=== PATIENT | male | born 1980 | race Caucasian/White ===

== ENCOUNTER 2018-02-08 17:59 | Emergency (ER) | payer SELFPAY ==
[2018-02-08] MEDS ORDERED: methylPREDNISolone Sodium Succinate 125 MG/2 ML SDV IM ONE (19:06)
[2018-02-08] MEDS ORDERED: Albuterol/Ipratropium 3.0-0.5 MG/3 ML Neb Soln NEB ONE (19:06)
--- NOTE | 2018-02-08 19:09 | EDM.PDOC ---
ED HPI GENERAL MEDICAL PROBLEM - General Chief Complaint: Respiratory Problem Stated Complaint: difficulty breathing Time Seen by Provider: 02/08/18 19:01 Source of Information: Reports: Patient, RN Notes Reviewed History Limitations: Reports: No Limitations - History of Present Illness INITIAL COMMENTS - FREE TEXT/NARRATIVE: 37-year-old gentleman presents to the emergency department today complaint of shortness of breath, he states is been short of breath for about 2 days he noticed it after he did clean out an old house getting ready for tear down. House is located in the [facility] he was not wearing a mask he does have white sputum production and is audibly wheezing. No history of asthma takes no medications chest pain Pain Score (Numeric/FACES): 2 - Related Data Allergies Allergy/AdvReac Type Severity Reaction Status Date / Time No Known Allergies Allergy Verified 02/08/18 18:50 Home Meds: Home Meds NK [No Known Home Meds] 02/08/18 [History] Past Medical History Musculoskeletal History: Reports: Arthritis - Past Surgical History HEENT Surgical History: Reports: Oral Surgery Social & Family History - Tobacco Use Smoking Status *Q: Never Smoker - Caffeine Use Caffeine Use: Reports: Coffee, Tea - Recreational Drug Use Recreational Drug Use: No ED ROS GENERAL - Review of Systems Review Of Systems: See Below Constitutional: Denies: Fever, Chills HEENT: Reports: No Symptoms Respiratory: Reports: Shortness of Breath, Wheezing, Cough, Sputum Cardiovascular: Reports: No Symptoms GI/Abdominal: Reports: No Symptoms : Reports: No Symptoms Musculoskeletal: Reports: No Symptoms Skin: Reports: No Symptoms Neurological: Reports: No Symptoms ED EXAM, GENERAL - Physical Exam Exam: See Below Exam Limited By: No Limitations General Appearance: Alert, WD/WN, No Apparent Distress Eye Exam: Bilateral Eye: Normal Inspection Head: Atraumatic, Normocephalic Neck: Normal Inspection, Supple, Non-Tender, Full Range of Motion Respiratory/Chest: No Respiratory Distress, No Accessory Muscle Use, Decreased Breath Sounds, Wheezing Cardiovascular: Regular Rate, Rhythm, No Murmur Course - Vital Signs Last Recorded V/S: Last Vital Signs Temp 96.8 F 02/08/18 18:51 Pulse 86 02/08/18 18:51 Resp 20 02/08/18 18:51 BP 146/98 H 02/08/18 18:51 Pulse Ox 93 L 02/08/18 18:51 - Orders/Labs/Meds Orders: Active Orders 24 hr Category Date Time Status RT Aerosol Therapy [RC] ASDIRECTED Care 02/08/18 19:06 Active Chest 2V [CR] Urgent Exams 02/08/18 19:05 Taken Labs: Laboratory Tests 02/08/18 02/08/18 02/08/18 Range/Units 19:16 19:16 19:16 WBC 11.1 H (4.5-11.0) K/uL RBC 5.30 (4.30-5.90) M/uL Hgb 17.3 H (12.0-15.0) g/dL Hct 49.2 (40.0-54.0) % MCV 93 (80-98) fL MCH 33 H (27-31) pg MCHC 35 (32-36) % Plt Count 285 (150-400) K/uL Neut % (Auto) 67 H (36-66) % Lymph % (Auto) 18 L (24-44) % [place] % (Auto) 13 H (2-6) % Eos % (Auto) 2 (2-4) % Baso % (Auto) 0 (0-1) % Sodium 137 L (140-148) mmol/L Potassium 3.9 (3.6-5.2) mmol/L Chloride 102 (100-108) mmol/L Carbon Dioxide 25 (21-32) mmol/L Anion Gap 13.9 (5.0-14.0) mmol/L BUN 9 (7-18) mg/dL Creatinine 0.8 (0.8-1.3) mg/dL Est Cr Clr Drug Dosing 119.40 mL/min Estimated GFR (MDRD) > 60 (>60) Glucose 115 H (74-106) mg/dL Lactic Acid 1.1 (0.4-2.0) mmol/L Calcium 9.7 (8.5-10.1) mg/dL Total Bilirubin 0.6 (0.2-1.0) mg/dL AST 22 (15-37) U/L ALT 28 (12-78) U/L Alkaline Phosphatase 75 (46-116) U/L Total Protein 7.7 (6.4-8.2) g/dL Albumin 4.1 (3.4-5.0) g/dL Globulin 3.6 H (2.3-3.5) g/dL Albumin/Globulin Ratio 1.1 L (1.2-2.2) Meds: Medications Discontinued Medications Generic Name Dose Route Start Last Admin Trade Name Jordan PRN Reason Stop Dose Admin Albuterol/Ipratropium 3 ml 02/08/18 19:06 02/08/18 19:31 Duoneb 3.0-0.5 Mg/3 Ml NEB 02/08/18 19:07 3 ml ONETIME ONE Administration Methylprednisolone Sodium Succinate 125 mg 02/08/18 19:06 02/08/18 19:32 Solu-Medrol IM 02/08/18 19:07 125 mg ONETIME ONE Administration Departure - Departure Time of Disposition: 19:53 Disposition: Home, Self-Care 01 Condition: Good Clinical Impression: Bronchitis - Discharge Information Referrals: PCP,None [Primary Care Provider] - Forms: ED Department Discharge Additional Instructions: Start the prednisone tomorrow, take full course of antibiotics start today, use albuterol inhaler as needed for shortness of breath symptoms, Please followup with your primary care provider in 3-5 days if not better, please call return to the emergency department with worsening of symptoms. - My Orders Last 24 Hours: My Active Orders 02/08/18 19:05 Chest 2V [CR] Urgent 02/08/18 19:06 RT Aerosol Therapy [RC] ASDIRECTED - Assessment/Plan Last 24 Hours: My Active Orders 02/08/18 19:05 Chest 2V [CR] Urgent 02/08/18 19:06 RT Aerosol Therapy [RC] ASDIRECTED Plan: Assessment Acuity = acute Site and laterality = bronchitis with wheezing Etiology = unclear etiology possibly bacterial Manifestations = dyspnea Location of injury = Home Lab values = CBC, CMP unremarkable lactic acid within normal limits, chest x- ray I did review films myself I cannot appreciate any acute process, the official read from radiology is pending Plan Prescriptions written for azithromycin per package directions, albuterol inhaler 2 puffs every 4 hours when necessary prednisone 20 mg once day for 5 days follow-up with primary care 3-5 days if no improvement This note was dictated using [employer] voice recognition software please call with any questions on syntax or grammar.
--- NOTE | 2018-02-10 10:34 | CR ---
CHEST: 2 view CLINICAL HISTORY:SOB COMPARISON:None FINDINGS: Heart size and pulmonary vascular normal. No infiltrate effusion or pneumothorax is seen.. IMPRESSION: No acute cardiopulmonary process
== END 2018-02-08 20:00 | disposition home or self-care (01) ==
LOC: JP.ED 17:59
DX: J40 Bronchitis, not specified as acute or chronic (principal)
CPT/HCPCS: 36415; 71046; 80053; 83605; 85025; 94640; 96372; 99285; J2930; J7620-GY